=== PATIENT | female | born 1985 | race Caucasian/White ===

== ENCOUNTER 2020-06-25 10:51 | Emergency (ER) | payer OTHER ==
[~2020-06-25] VITALS: Ht 157.5 cm; Wt 54.4 kg
[~2020-06-25 10:51] MED LIST: ATIVAN1 M1 PO
[2020-06-25 11:16] LABS: ABSOLUTE LYMPHOCYTES 1.2 thou/uL (0.8-5.3); ABSOLUTE MONOCYTES 0.3 thou/uL (0.0-1.2); ABSOLUTE NEUTROPHILS 4.4 thou/uL (1.6-8.1); BASOPHILS 0.8 %; EOSINOPHILS 0.2 %; HEMATOCRIT 37.4 % (37.0-47.0); HEMOGLOBIN 12.4 gm/dL (12.0-15.0); LYMPHOCYTES 20.1 %; MCH 26.7 pg (26.0-34.0); MCHC 33.1 g/dL (28.0-37.0); MCV 80.9 fL (80.0-100.0); MONOCYTES 5.7 %; MPV 8.3 fl. (7.2-11.1); NUCLEATED RBCS 0 /100WBC; PLATELET COUNT* 248 thou/uL (150-400); POLYS 73.2 %; RBC 4.63 mil/uL (4.20-5.00); RDW-CV 15.4 % (10.5-14.5); WBC 6.1 thou/uL (4.0-11.0)
[2020-06-25 11:24] LABS: CALCIUM 9.7 mg/dL (8.5-10.1); CREATININE 0.7 mg/dL (0.6-1.3); POTASSIUM 3.6 mmol/L (3.5-5.1)
[2020-06-25 11:29] LABS: MAGNESIUM 1.9 mg/dL (1.8-2.4); TOTAL PROTEIN 9.2 g/dL (6.4-8.2)
[2020-06-25 13:29] VITALS: BP 102/58
--- NOTE | 2020-06-25 15:04 | EKG ---
[place] [address] ELECTROCARDIOGRAM REPORT Name: MARLEE LEON Room: [facility]#: [id number] Admission: 06/25/20 Attend Phys: Discharge: 06/25/20 Date of : 87 Date of Service: 06/25/20 1056 Report #: [id number] THIS REPORT FOR: //name// [facility] ED Test Date: 2020-06-25 Test Time: 10:56:10 Pat Name: MARLEE LEON Department: Room: Gender: [employer] Operator: Rosemarie : 1985 Requested By: Sebastien Ruiz Order Number: [id number] MD: Willy Salvador Measurements Intervals [place] Rate: 70 P: 75 AR: 147 QRS: 98 QRSD: 89 T: 73 QT: 394 QTc: 426 Interpretive Statements Sinus rhythm Borderline right axis deviation No previous ECG available for comparison Electronically Signed On 06-25-2020 15:03:57 [employer] by Willy Salvador [email or web address] <ELECTRONICALLY SIGNED> By: Willy Salvador MD, [facility] 06/25/20 1503 55 Willy Salvador MD, FACC /EPI
== END 2020-06-25 13:31 | disposition home or self-care (01) ==
LOC: M.ERS 10:51
PROVIDERS: Emergency Medicine Emergency Medical Services
DX: R07.89 Other chest pain (principal); F17.210 Nicotine dependence, cigarettes, uncomplicated